=== PATIENT | male | born 1970 | race African-American/Black ===

== ENCOUNTER 2022-06-08 21:30 | Emergency (ER) | payer OTHER ==
[2022-06-08 21:38] VITALS: BP 136/78
[2022-06-08] MEDS ORDERED: LIDOCAINE 1% HCL (LOCAL ANESTH.) INJ 20ML MDV ID ONE (23:30)
[2022-06-08] MEDS ORDERED: LIDOCAINE 1%HCL (LOCAL ANESTH) 10 ML MDV ONE (23:40)
[2022-06-09] MEDS ORDERED: KETOROLAC TROMETH 30 MG/ML 1ML VIAL IM ONE (01:00)
[2022-06-09] MEDS ORDERED: AMOXICILLIN/CLAVUL 875 MG TAB PO ONE (01:00)
[2022-06-09] MEDS ORDERED: IBUP800T26 PO (01:10)
[2022-06-09] MEDS ORDERED: AMOX-277 PO (01:10)
== END 2022-06-09 01:31 | disposition home or self-care (01) ==
LOC: EEVIPCON 21:30 → ER 21:30
DX: S63.250A Unspecified dislocation of right index finger, initial encounter (principal); E11.9 Type 2 diabetes mellitus without complications; I10 Essential (primary) hypertension; W21.05XA Struck by basketball, initial encounter; Y93.89 Activity, other specified; Y92.89 Other specified places as the place of occurrence of the external cause; Y99.8 Other external cause status
CPT/HCPCS: 73130; 73140; 96372; 99283; J1885; J2001